=== PATIENT | female | born 1985 | race Caucasian/White ===

== ENCOUNTER 2020-11-10 07:41 | Outpatient (REF) | payer OTHER, SELFPAY | END 2020-11-10 07:42 | disposition home or self-care (01) | LOC: HO.WFDLDS 07:41 | PROVIDERS: PCP Internal Medicine; Visit Provider Internal Medicine | DX: Z20.822 Contact with and (suspected) exposure to COVID-19 (principal) | CPT/HCPCS: 36415; C9803; U0003; U0005 ==